=== PATIENT | female | born 1980 ===

== ENCOUNTER 2016-05-10 17:17 | Emergency (ER) | payer BC ==
[~2016-05-10] VITALS: Ht 167.6 cm; Wt 66.0 kg
[2016-05-10 17:28] VITALS: TEMP 36.7; Ht 167.6 cm; Wt 66.0 kg
[2016-05-10] MEDS ORDERED: SODIUM CHLORIDE 0.9% 1000ML 1,000 ML IV STA (17:40)
[2016-05-10] MEDS ORDERED: GI COCKTAIL PO STA (17:40)
[2016-05-10] MEDS ORDERED: SUCRALFATE 1 GM TAB PO STA (17:40)
[2016-05-10] MEDS ORDERED: FAMOTIDINE 20 MG TAB PO STA (17:40)
[2016-05-10] MEDS ORDERED: ONDANSETRON INJ 2 MG/ML 2 ML VIAL IV STA (17:40)
[2016-05-10] MEDS ORDERED: SERT50TA PO (17:42)
[2016-05-10] MEDS ORDERED: MULT-506 PO (17:42)
[2016-05-10] MEDS ORDERED: PRLSR20 PO (17:42)
--- NOTE | 2016-05-10 17:43 | EMERGENCY ROOM VISIT NOTE ---
History Report prepared by Osorio: Daniele Carballo Under the Supervision of: Dr. Raghavendra Arnold M.D. First contact with patient: 17:32 Chief Complaint: VOMITING Stated Complaint: BURNING THROAT AND VOMITING Nursing Triage Summary: Nausea and vomitting. History of Present Illness The patient is a 35 year old female who presents to the Emergency Room with complaints of nausea and vomiting that began four days ago. At this time, the patient was at home with her drinking wine. She had three or four glasses of wine before bed. The next day, she noted that she did not feel well. She began having nausea and vomiting that did not alleviate themselves. This continued into today. She has a past medical history of GERD, and she states she is having a lot of reflux. She ate very mildly today, but she cannot keep any food or medication down. She had an endoscope many years ago, but she needs to schedule an upper and lower GI scope in the near future. She notes that she is very uncomfortable at the current time. She denies any heart history and believes this to be a GI issue. There is no chance that she is . Her last menstrual cycle was two weeks ago. Source of History: patient Onset: 4 days ago Position: other (GI) Symptom Intensity: moderate Quality: other (nausea and vomiting) Timing: constant, intermittent Modifying Factors (Worsening): eating, drinking Associated Symptoms: No urinary symptoms Note: She is having a lot of acid reflux. She denies any other symptoms. Review of Systems See HPI for pertinent positives & negatives. A total of 10 systems reviewed and were otherwise negative. Past Medical & Surgical Medical Problems: (1) GERD (gastroesophageal reflux disease) Family History Patient reports no known family medical history. Social History Smoking Status: Never Smoker Smokeless Tobacco Use: No Alcohol Use: occasionally Drug Use: none Marital Status: Housing Status: lives with significant other Occupation Status: employed Current/Historical Medications Scheduled Famotidine (Pepcid), 40 MG PO HS Multivitamin (Multivitamin), 1 TAB PO DAILY Omeprazole (Prilosec), 20 MG PO DAILY Sertraline (Zoloft), 50 MG PO DAILY Allergies Coded Allergies: No Known Allergies (Unverified , 05/10/16) Physical Exam Vital Signs Date Time Temp Pulse Resp B/P Pulse Ox O2 Delivery O2 Flow Rate FiO2 05/10/16 19:48 73 18 112/67 98 05/10/16 18:45 79 16 119/69 97 Room Air 05/10/16 17:28 36.7 75 16 127/76 96 Room Air Physical Exam GENERAL: Patient is a healthy-appearing well-nourished HEAD: Normocephalic atraumatic EYES: Ocular movements intact pupils equal and react to light OROPHARYNX mucous membranes are moist no exudates present no erythema or edema present NECK: Supple no nuchal rigidity CHEST: Good equal expansion LUNGS: Clear and equal to auscultation CARDIAC: Normal S1 and S2 ABDOMEN: Soft nontender no guarding BACK: No CVA tenderness EXTREMITIES: No pain upon palpation normal muscle strength in all groups no clubbing cyanosis or edema NEURO: Patient is following commands is answering questions appropriately. Alert and oriented x3 Cranial Nerves 2-12 grossly intact Medical Decision & Procedures Laboratory Results 05/10/16 17:50 Red Blood Count 4.29, Mean Corpuscular Volume 82.5, Mean Corpuscular Hemoglobin 26.8, Mean Corpuscular Hemoglobin Concent 32.5, Mean Platelet Volume 10.4, Neutrophils (%) (Auto) 58.2, Lymphocytes (%) (Auto) 28.9, Monocytes (%) (Auto) 10.4, Eosinophils (%) (Auto) 2.1, Basophils (%) (Auto) 0.2, Neutrophils # (Auto ) 3.12, Lymphocytes # (Auto) 1.55, Monocytes # (Auto) 0.56, Eosinophils # (Auto ) 0.11, Basophils # (Auto) 0.01 05/10/16 17:50 Test 05/10/16 17:40 05/10/16 17:50 Urine Color DK YELLOW Urine Appearance CLEAR (CLEAR) Urine pH 5.5 (4.5-7.5) Urine Specific [place] 1.031 (1.000-1.030) Urine Protein NEG (NEG) Urine Glucose (UA) NEG (NEG) Urine Ketones NEG (NEG) Urine Occult Blood NEG (NEG) Urine Nitrite NEG (NEG) Urine Bilirubin NEG (NEG) Urine Urobilinogen NEG (NEG) Urine Leukocyte Esterase NEG (NEG) Urine Test NEG (NEG) White Blood Count 5.36 K/uL (4.8-10.8) Red Blood Count 4.29 M/uL (4.2-5.4) Hemoglobin 11.5 g/dL (12.0-16.0) Hematocrit 35.4 % (37-47) Mean Corpuscular Volume 82.5 fL (80-100) Mean Corpuscular Hemoglobin 26.8 pg (25-34) Mean Corpuscular Hemoglobin Concent 32.5 g/dl (32-36) Platelet Count 216 K/uL (130-400) Mean Platelet Volume 10.4 fL (7.4-10.4) Neutrophils (%) (Auto) 58.2 % Lymphocytes (%) (Auto) 28.9 % Monocytes (%) (Auto) 10.4 % Eosinophils (%) (Auto) 2.1 % Basophils (%) (Auto) 0.2 % Neutrophils # (Auto) 3.12 K/uL (1.4-6.5) Lymphocytes # (Auto) 1.55 K/uL (1.2-3.4) Monocytes # (Auto) 0.56 K/uL (0.11-0.59) Eosinophils # (Auto) 0.11 K/uL (0-0.5) Basophils # (Auto) 0.01 K/uL (0-0.2) RDW Standard Deviation 40.8 fL (36.4-46.3) RDW Coefficient of Variation 13.5 % (11.5-14.5) Immature Granulocyte % (Auto) 0.2 % Immature Granulocyte # (Auto) 0.01 K/uL (0.00-0.02) Anion Gap 10.0 mmol/L (3-11) Est Creatinine Clear Calc Drug Dose 125.5 ml/min Estimated GFR () 137.4 Estimated GFR (Non- 118.6 BUN/Creatinine Ratio 22.6 (10-20) Calcium Level 8.7 mg/dl (8.5-10.1) Total Bilirubin 0.5 mg/dl (0.2-1) Direct Bilirubin 0.2 mg/dl (0-0.2) Aspartate Amino Transf (AST/SGOT) 29 U/L (15-37) Alanine Aminotransferase (ALT/SGPT) 23 U/L (12-78) Alkaline Phosphatase 76 U/L (45-117) Total Protein 7.7 gm/dl (6.4-8.2) Albumin 4.1 gm/dl (3.4-5.0) Lipase 130 U/L (73-393) Labs reviewed by ED physician. Medications Administered Medications (Trade) Dose Ordered Sig/Viktoriya Route Start Time Stop Time Status Last Admin Dose Admin Famotidine (Pepcid Tab) 20 mg NOW STAT PO 05/10/16 17:40 05/10/16 17:42 DC 05/10/16 18:02 20 MG Sucralfate 1 gm 1 gm NOW STAT PO 05/10/16 17:40 05/10/16 17:42 DC 05/10/16 18:02 1 GM Sodium Chloride (Nss 1000ml) 1,000 ml @ 999 mls/hr Q1H1M STAT IV 05/10/16 17:40 05/10/16 18:40 DC 05/10/16 18:01 999 MLS/HR Ondansetron HCl (Zofran Inj) 4 mg NOW STAT IV 05/10/16 17:40 05/10/16 17:42 DC 05/10/16 18:02 4 MG Al Hydroxide/Mg Hydroxide (Maalox Susp) 30 ml STK-MED ONCE .ROUTE 05/10/16 17:54 05/10/16 17:57 DC 05/10/16 17:54 30 ML Lidocaine HCl (Viscous Lidocaine 2% Soln) 20 ml STK-MED ONCE .ROUTE 05/10/16 17:55 05/10/16 17:58 DC 05/10/16 17:55 20 ML Ondansetron HCl (ZOFRAN ODT 4MG Home Pack) 1 homepack UD ONCE PO 05/10/16 19:45 05/10/16 19:46 DC 05/10/16 19:44 1 HOMEPACK ED Course 1732: Past medical records reviewed. The patient was evaluated in room A12. A complete history and physical examination was performed. 1740: Ordered Zofran Inj 4 mg IV, Sodium Chloride 1000 ml @ 999 mls/hr, Sucralfate 1 gm PO, Famotidine 20 mg PO, Gi Cocktail 24 ml PO 175: Maalox Susp 30 ml .ROUTE 1754: Lidocaine HCl 20 ml .ROUTE 1944: Ondansetron HCl 1 homepack PO 1950: Upon reexamination the patient is resting. I discussed results and treatment plan with the patient. She verbalizes agreement and understanding. The patient is ready for discharge. Medical Decision Differential diagnosis: Etiologies such as appendicitis, diverticulitis, PUD, biliary pathology, UTI, pancreatitis, obstruction, mesenteric ischemia, aortic pathology, infections, inflammatory bowel disease, renal colic, as well as others were entertained. This is a 35-year-old female who presents emergency department complaining of reflux like symptoms. The patient has a history of esophageal stricture and was to follow up with [facility] however she has not. She has been having issues since Monday night when she had 4 glasses of alcohol. She has not been drinking since she does not smoke. The patient also takes a large amount of ibuprofen so she has several risk factors for reflux. In the emergency department the patient was given IV along with a normal saline bolus, Zofran. In addition she was also given a GI cocktail, Pepcid and Carafate. I do believe that the patient needs rest for esophagus until follow-up with Dr. Falk's office. For that reason I will recommend a clear liquid diet for the next 48 hours. In addition I also recommended 5 mL some Maalox before every meal and at bedtime I will start the patient on Pepcid. Serial abdominal examinations were performed on the patient in the emergency department and no tended the patient exhibit a surgical abdomen. I do believe she is pain-free and she can be safely discharged home. Impression Primary Impression: GERD (gastroesophageal reflux disease) Scribe Attestation The scribe's documentation has been prepared under my direction and personally reviewed by me in its entirety. I confirm that the note above accurately reflects all work, treatment, procedures, and medical decision making performed by me. Departure Information Dispostion Home / Self-Care Prescriptions Famotidine (Pepcid) 40 Mg Tab 40 MG PO HS for 10 Days, #10 TAB Prov: Raghavendra Arnold MD 05/10/16 Referrals Jack Agarwal III, M.D. (PCP) Sameer Kwong M.D. Forms HOME CARE DOCUMENTATION FORM, IMPORTANT VISIT INFORMATION, School Instructions, Work Instructions Patient Instructions ED GERD, My [facility] Additional Instructions Follow up with Dr Kwong's office Take 5 ml Maalox before every meal and at bedtime You have been examined and treated today on an emergency basis only. This is not a substitute for, or an effort to provide, complete comprehensive medical care. It is impossible to recognize and treat all injuries or illnesses in a single emergency department visit. It is therefore important that you follow up closely with Dr Agarwal. Call as soon as possible for an appointment. Thank you for your time and consideration. I look forward to speaking with you again soon. Please don't hesitate to call us if you have any questions. Problem Qualifiers Primary Impression: GERD (gastroesophageal reflux disease) Esophagitis presence: with esophagitis Qualified Codes: K21.0 - Gastro- esophageal reflux disease with esophagitis
[2016-05-10] MEDS ORDERED: ALUMINUM/MAGNESIUM SUSP 30 ML UDC ONE (17:54)
[2016-05-10] MEDS ORDERED: LIDOCAINE HCL 2% VISC SOLN 20 ML UDC ONE (17:55)
[2016-05-10 18:05] LABS: BASO % 0.2 %; BASO ABS # 0.01 K/uL (0-0.2); COMPLETE YES; EOS % 2.1 %; HEMATOCRIT 35.4 % (37-47); IG% 0.2 %; LYMPH % 28.9 %; LYMPH ABS # 1.55 K/uL (1.2-3.4); MEAN CELL VOLUME 82.5 fL (80-100); MEAN CORPUSCULAR HEMOGLOBIN 26.8 pg (25-34); MEAN CORPUSCULAR HGB CONC 32.5 g/dl (32-36); MEAN PLATELET VOLUME 10.4 fL (7.4-10.4); MONO % 10.4 %; NEUT % 58.2 %; PLATELET COUNT 216 K/uL (130-400); RED BLOOD COUNT 4.29 M/uL (4.2-5.4); WHITE BLOOD COUNT 5.36 K/uL (4.8-10.8)
[2016-05-10 18:05] LABS: URINE APPEARANCE CLEAR (CLEAR); URINE BILIRUBIN NEG (NEG); URINE COLOR DK YELLOW; URINE NITRITE NEG (NEG); URINE PH 5.5 (4.5-7.5); URINE SPECIFIC GRAVITY 1.031 (1.000-1.030); UROBILINOGEN NEG (NEG); ZZUR CULT IF INDIC CLEAN CATCH NO
[2016-05-10 18:09] LABS: MANUAL MICROSCOPIC REQUIRED? NO; REVIEW REQ? NO
[2016-05-10 18:22] LABS: BUN/CREATININE RATIO 22.6 (10-20); CALCIUM 8.7 mg/dl (8.5-10.1); CREATININE 0.58 mg/dl (0.60-1.20); POTASSIUM 3.4 mmol/L (3.5-5.1)
[2016-05-10] MEDS ORDERED: FAMO40TA6 PO (18:28)
[2016-05-10] MEDS ORDERED: ONDANSETRON HOME PACK 4MG OD TAB PO ONE (19:45)
[2016-05-10 19:48] VITALS: BP 112/67; PULSE 73; O2SAT 98
== END 2016-05-10 19:52 | disposition home or self-care (01) ==
LOC: C.EDB 17:20 → C.EDA 19:52
DX: K21.9 Gastro-esophageal reflux disease without esophagitis (principal)

== ENCOUNTER → 2016-06-06 | Outpatient (CLI) | payer BC ==
[~2016-06-06] MED LIST: MULT-506 PO; PRLSR20 PO; SERT50TA PO
== END | disposition home or self-care (01) ==
LOC: C.PATHSPEC 15:36
PROVIDERS: ATTEND Obstetrics & Gynecology
DX: R93.8 Abnormal findings on diagnostic imaging of other specified body structures (principal)

== ENCOUNTER → 2016-07-20 | Outpatient (CLI) | payer BC ==
[2016-07-23 03:05] LABS: CHLAMYDIA TRACH RNA*** NOT DETECTED (NOT DETECTED); GC (NEIS GONORRHOEAE)RNA** NOT DETECTED (NOT DETECTED)
== END | disposition home or self-care (01) ==
LOC: C.LABSPEC 12:49
PROVIDERS: ATTEND Obstetrics & Gynecology
DX: Z30.430 Encounter for insertion of intrauterine contraceptive device (principal)

== ENCOUNTER → 2016-07-20 | Outpatient (CLI) | payer BC | END | disposition home or self-care (01) | LOC: C.PAPS 10:14 | PROVIDERS: ATTEND Obstetrics & Gynecology | DX: Z01.419 Encounter for gynecological examination (general) (routine) without abnormal findings (principal) ==